=== PATIENT | female | born 1985 | race Two or more races ===

== ENCOUNTER 2017-01-09 01:17 | Emergency (ER) | payer OTHER ==
[~2017-01-09] VITALS: Ht 167.6 cm; Wt 63.5 kg
[2017-01-09] MEDS ORDERED: IV NS 0.9% 500 ML BAG IV ONE (01:30)
[2017-01-09] MEDS ORDERED: MORPHINE SULFATE INJ 2 MG/ML DISP.SYRIN IV ONE (01:30)
[2017-01-09] MEDS ORDERED: ONDANSETRON HCL/PF 4 MG/2 ML VIAL IVP ONE (01:30)
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
[2017-01-09] MEDS ORDERED: MORPHINE SULFATE INJ 4 MG/ML DISP.SYRIN ONE (01:45)
[2017-01-09] MEDS ORDERED: IV SET PRIMARY 1 EA INFUS.SET MC ONE (01:45)
[2017-01-09] MEDS ORDERED: ONDANSETRON HCL/PF 4 MG/2 ML VIAL ONE (01:45)
[2017-01-09] MEDS ORDERED: IV NS 0.9% 1,000 ML ONE (01:45)
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
[2017-01-09 02:00] LABS: BASOPHILS % (AUTO) 0.2 % (0.0-2.0); EOSINOPHILS # (AUTO) 0.2 /CMM (0.0-0.7); EOSINOPHILS % (AUTO) 2.9 % (0.0-6.0); HEMATOCRIT 40 % (33-45); HEMOGLOBIN 13.3 g/dL (11.5-14.8); LYMPHOCYTES # (AUTO) 2.3 /CMM (0.8-4.8); LYMPHOCYTES % (AUTO) 31.9 % (20.0-44.0); MEAN CORPUSCULAR HEMOGLOBIN 30 PG (26.0-33.0); MEAN CORPUSCULAR HGB CONC 34 g/dl (31.0-36.0); MEAN CORPUSCULAR VOLUME 89 fL (82-100); MONOCYTES # (AUTO) 0.6 /CMM (0.1-1.30); MONOCYTES % (AUTO) 8.1 % (2.0-12.0); NEUTROPHILS # (AUTO) 4.1 /CMM (1.8-8.9); NEUTROPHILS % (AUTO) 56.9 % (43.0-81.0); PLATELET COUNT (AUTO) 166 /CMM (150-450); RED BLOOD CELL COUNT(AUTO) 4.44 MIL/uL (4.0-5.2); WHITE BLOOD COUNT (AUTO) 7.2 K/uL (4.3-11.0)
[2017-01-09 02:05] LABS: CALCIUM, SERUM 8.5 mg/dL (8.5-10.1); CREATININE 0.9 mg/dL (0.6-1.3); POTASSIUM 3.5 mmol/L (3.5-5.1)
[2017-01-09] MEDS ORDERED: KETOROLAC TROMETHAMINE INJ 30 MG/ML VIAL ONE ×2 (02:10→03:26)
--- NOTE | 2017-01-09 02:10 | NUR ---
[facility] WAIVER SIGNED.
[2017-01-09 02:13] LABS: ALBUMIN 4.1 g/dL (3.4-5.0); BILIRUBIN,DIRECT 0.1 mg/dL (0.0-0.2); BILIRUBIN,TOTAL 0.6 mg/dL (0.2-1.0); TOTAL PROTEIN, SERUM 7.7 g/dL (6.4-8.2)
[2017-01-09] MEDS ORDERED: KETOROLAC TROMETHAMINE INJ 30 MG/ML VIAL IV ONE ×2 (02:30→03:30)
--- NOTE | 2017-01-09 02:30 | NUR ---
JULIO CÉSAR TRAORE, ARRIVED AND IS AT THE BEDSIDE FOR BED #5.
--- NOTE | 2017-01-09 02:40 | NUR ---
PT AMBULATED TO THE BATHROOM WITH ASSISTANCE BY HER .
--- NOTE | 2017-01-09 02:51 | NUR ---
PT AMBULATED BACK TO BED #5. URINE SAMPLE OBTAINED.
--- NOTE | 2017-01-09 02:53 | NUR ---
LAB CALLED FOR P/U.
[2017-01-09 03:02] LABS: APPEARANCE,URINE CLEAR (CLEAR); BILIRUBIN,URINE NEGATIVE (NEGATIVE); BLOOD, URINE NEGATIVE Ery/uL (NEGATIVE); COLOR,URINE YELLOW (YELLOW); KETONES,URINE NEGATIVE (NEGATIVE); LEUKOCYTE ESTERASE ,URINE NEGATIVE (NEGATIVE); NITRITE, URINE NEGATIVE (NEGATIVE); PH,URINE 5.5 (5.0-8.0); PROTEIN,URINE NEGATIVE (NEGATIVE); UGLUCOSE NEGATIVE (NEGATIVE); UROBILINOGEN,URINE 0.2 EU/dL (0.2)
[2017-01-09 03:12] LABS: PREGNANCY TEST URINE QUAL NEGATIVE (NEGATIVE)
[2017-01-09 03:44] VITALS: BP 119/70
[2017-01-09] MEDS ORDERED: KETOROLAC TROMETHAMINE INJ 30 MG/ML VIAL IM ONE (04:00)
== END 2017-01-09 03:45 | disposition home or self-care (01) ==
LOC: ER 01:21
DX: N83.201 Unspecified ovarian cyst, right side (principal)
CPT/HCPCS: 36415; 76856; 80048; 80076; 81001; 84703; 85025; 96372; 96374; 96375; 99285; A4606; J1885 ×2; J2270; J2405; J7030; Z7610; 81000-TC

== ENCOUNTER 2019-04-02 16:25 | Emergency (ER) | payer MEDICAID, OTHER ==
[~2019-04-02] VITALS: Ht 170.2 cm; Wt 65.8 kg
[2019-04-02 16:25] VITALS: BP 146/91
== END 2019-04-02 16:59 | disposition home or self-care (01) ==
LOC: ER 16:26
DX: J06.9 Acute upper respiratory infection, unspecified (principal)

== ENCOUNTER 2019-10-18 20:12 | Emergency (ER) | payer OTHER, MEDICAID ==
[~2019-10-18] VITALS: Ht 167.6 cm; Wt 65.8 kg
[2019-10-18 20:37] VITALS: BP 131/98
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
== END 2019-10-18 21:30 | disposition home or self-care (01) ==
LOC: ER 20:18
DX: S16.1XXA Strain of muscle, fascia and tendon at neck level, initial encounter (principal); V49.49XA Driver injured in collision with other motor vehicles in traffic accident, initial encounter; Y93.89 Activity, other specified; Y92.488 Other paved roadways as the place of occurrence of the external cause; Y99.8 Other external cause status